=== PATIENT | female | born 1935 | race Caucasian/White ===

== ENCOUNTER 2016-11-22 16:16 | Inpatient (IN) | payer OTHER, MEDICARE ==
[~2016-11-22] VITALS: Ht 147.3 cm; Wt 53.6 kg
[~2016-11-22 16:16] MED LIST: CIPRO500 MG PO; CIPROFLOXACIN500 M1 PO; CITALOPRAM HBR20 MG PO; LEVOTHYROXINE75 MCG PO; LOSARTAN POTAS100 MG PO; LUMIGAN 0.50 DROP/22 BOTH EYES; NORVASC5 MG PO; PROMETHAZINE HC25 M1 PO; TIMOLOL MALEATE15 M1 BOTH EYES
[2016-11-22 17:06] LABS: EOSINOPHIL COUNT 0.1 K/uL (0-0.3); HEMATOCRIT 35.4 % (36.0-46.0); IMMATURE GRANULOCYTE (%) 1.3 % (0.0-0.7); IMMATURE GRANULOCYTE COUNT 0.2 K/uL; INSTRUMENT ABS NEUTROPHIL CT 8.1 K/uL; LYMPHOCYTE COUNT 2.3 K/uL (1.0-2.8); MCH 29.7 PG (29.0-34.0); MCHC 34.7 G/DL (30.0-36.0); MCV 85.5 FL (83-99); MEAN PLAT.VOLUME 8.9 uM^3 (9.5-12.4); MONOCYTE (%) 5.8 % (3-12); MONOCYTE COUNT 0.7 K/uL (0-0.8); NEUTROPHIL (%) 71.2 % (45-76); NEUTROPHIL COUNT 8.1 K/uL (1.8-6.4); PLATELET COUNT 237 K/uL (156-360); RBC DIS.WIDTH-SD 37.8 % (39-53); RED BLOOD COUNT 4.14 M/uL (3.80-5.20); WHITE BLOOD COUNT 11.3 K/uL (4.1-10.2)
[2016-11-22 17:16] LABS: CHLORIDE 87 mEq/L (99-109); POTASSIUM 5.5 mEq/L (3.7-5.4)
[2016-11-22 17:17] LABS: GLUCOSE 173 mg/dL (70-99)
[2016-11-22 17:19] LABS: ANION GAP 11 MEQ/L (2-14)
[2016-11-22 17:21] LABS: GFR ESTIMATE (CALCULATED) > 59 mL/min/
[2016-11-22 17:22] LABS: UREA NITROGEN (BUN) 11 mg/dL (9-23)
[2016-11-22 17:35] LABS: SODIUM 118 mEq/L (136-147)
[2016-11-22 17:49] LABS: COLOR ORANGE ((YELLOW))
[2016-11-22 17:54] LABS: GLUCOSE (STRIP) 100
[2016-11-22 17:55] LABS: ADD MIUA? YES; BLOOD NEGATIVE
[2016-11-22 18:26] LABS: MAGNESIUM 1.7 mg/dL (1.3-2.7)
[2016-11-22] MEDS ORDERED: TIMOPTIC-0100 DROP/1 BOTH EYES (18:31)
[2016-11-22] MEDS ORDERED: NORVASC10 MG PO (18:31)
[2016-11-22] MEDS ORDERED: BAYER ADVANCED500 MG PO (18:33)
[2016-11-22] MEDS ORDERED: TYLENOL REGULA325 MG PO (18:33)
[2016-11-22] MEDS ORDERED: URISTAT95 MG PO (18:33)
[2016-11-22] MEDS ORDERED: ATORVASTATIN CA20 MG PO (18:33)
[2016-11-22 19:12] LABS: EPITHELIAL CELLS RARE /HPF; RED BLOOD CELLS NONE SEEN /HPF (0-5); WHITE BLOOD CELLS NONE SEEN /HPF (0-5)
[2016-11-22 19:13] LABS: BACTERIA NONE SEEN /HPF; MUCUS NONE SEEN /LPF
[2016-11-22 19:59] LABS: POINT-OF-CARE METER ID UU14100415
[2016-11-22 20:55] LABS: TROP-I INTERPRETATION NEGATIVE; TROPONIN-I < 0.01 ng/mL (0.0-0.30)
[2016-11-22 21:33] VITALS: BP 91/66
[2016-11-22 21:44] VITALS: BP 91/66
[2016-11-22 22:00] VITALS: BP 115/60
[2016-11-22 23:00] VITALS: BP 118/65
[2016-11-22 23:00] LABS: METH RESISTANT S AUREUS PCR NEGATIVE (NEGATIVE)
[2016-11-22 23:01] LABS: PROBE CHECK PASS; SPECIMEN PROCESSING CONTROL PASS
[2016-11-22 23:43] LABS: CHLORIDE 93 mEq/L (99-109); SODIUM 120 mEq/L (136-147)
[2016-11-22 23:45] LABS: GLUCOSE 119 mg/dL (70-99); POTASSIUM 4.2 mEq/L (3.7-5.4)
[2016-11-22 23:46] LABS: ANION GAP 10 MEQ/L (2-14)
[2016-11-22 23:48] LABS: GFR ESTIMATE (CALCULATED) > 59 mL/min/
[2016-11-22 23:49] LABS: UREA NITROGEN (BUN) 10 mg/dL (9-23)
[2016-11-23] VITALS (24 sets, daily range): BP systolic 76–153; BP diastolic 39–73
[2016-11-23 06:07] LABS: HEMATOCRIT 29.5 % (36.0-46.0); MCH 29.8 PG (29.0-34.0); MCHC 34.9 G/DL (30.0-36.0); MCV 85.3 FL (83-99); MEAN PLAT.VOLUME 9.3 uM^3 (9.5-12.4); PLATELET COUNT 189 K/uL (156-360); RBC DIS.WIDTH-CV 12.2 % (11.8-14.6); RBC DIS.WIDTH-SD 37.3 % (39-53); RED BLOOD COUNT 3.46 M/uL (3.80-5.20); WHITE BLOOD COUNT 7.9 K/uL (4.1-10.2)
[2016-11-23 06:25] LABS: ANION GAP 7 MEQ/L (2-14); CHLORIDE 96 MEQ/L (99-109); GFR ESTIMATE (CALCULATED) > 59 mL/min/; POTASSIUM 3.8 MEQ/L (3.7-5.4); SAMPLE HEMOLYSIS CHECK 0; SAMPLE ICTERIC CHECK 0; SAMPLE LIPEMIA CHECK 0; SODIUM 123 MEQ/L (136-147); UREA NITROGEN (BUN) 9 mg/dL (9-23)
[2016-11-23 06:28] LABS: GLUCOSE 199 mg/dL (70-99)
[2016-11-23 10:18] LABS: TROP-I INTERPRETATION NEGATIVE; TROPONIN-I 0.16 ng/mL (0.0-0.30)
[2016-11-23 10:25] LABS: ANION GAP 6 MEQ/L (2-14); CHLORIDE 99 MEQ/L (99-109); GFR ESTIMATE (CALCULATED) > 59 mL/min/; GLUCOSE 217 mg/dL (70-99); POTASSIUM 3.7 MEQ/L (3.7-5.4); SAMPLE HEMOLYSIS CHECK 0; SAMPLE ICTERIC CHECK 0; SAMPLE LIPEMIA CHECK 0; SODIUM 124 MEQ/L (136-147); UREA NITROGEN (BUN) 7 mg/dL (9-23)
[2016-11-24] VITALS (23 sets, daily range): BP systolic 114–156; BP diastolic 57–127
[2016-11-24 07:05] LABS: PROTHROMBIN TIME 10.2 (9.2-11.2)
[2016-11-24 13:21] LABS: ADD MIUA? YES; BILIRUBIN NEGATIVE; BLOOD SMALL; COLOR STRAW ((YELLOW)); GLUCOSE (STRIP) NEGATIVE; KETONES NEGATIVE; LEUKOCYTES NEGATIVE; NITRITE NEGATIVE; PROTEIN (STRIP) 100; SPECIFIC GRAVITY 1.005 (1.000-1.030); UROBILINOGEN 0.2 MG/DL (0.2-1.0)
[2016-11-24 13:26] LABS: BACTERIA RARE /HPF; EPITHELIAL CELLS NONE SEEN /HPF; MUCUS NONE SEEN /LPF; RED BLOOD CELLS 0-5 /HPF (0-5); UCUL ADDED? NO; WHITE BLOOD CELLS 0-5 /HPF (0-5)
[2016-11-24 14:37] LABS: UR CREATININE CONCENTRATION 11.8 MG/DL
[2016-11-25] VITALS (19 sets, daily range): BP systolic 0–161; BP diastolic 0–74
[2016-11-25 08:45] LABS: EOSINOPHIL COUNT 0.1 K/uL (0-0.3); HEMATOCRIT 33.2 % (36.0-46.0); IMMATURE GRANULOCYTE (%) 0.5 % (0.0-0.7); INSTRUMENT ABS NEUTROPHIL CT 5.8 K/uL; LYMPHOCYTE COUNT 1.2 K/uL (1.0-2.8); MCH 29.9 PG (29.0-34.0); MCHC 35.5 G/DL (30.0-36.0); MCV 84.3 FL (83-99); MEAN PLAT.VOLUME 8.9 uM^3 (9.5-12.4); MONOCYTE (%) 7.3 % (3-12); MONOCYTE COUNT 0.6 K/uL (0-0.8); NEUTROPHIL (%) 75.6 % (45-76); NEUTROPHIL COUNT 5.8 K/uL (1.8-6.4); PLATELET COUNT 150 K/uL (156-360); RBC DIS.WIDTH-CV 12.2 % (11.8-14.6); RED BLOOD COUNT 3.94 M/uL (3.80-5.20); WHITE BLOOD COUNT 7.7 K/uL (4.1-10.2)
[2016-11-25 09:53] LABS: ANION GAP 9 MEQ/L (2-14); CHLORIDE 99 MEQ/L (99-109); GFR ESTIMATE (CALCULATED) > 59 mL/min/; MAGNESIUM 1.4 mg/dl (1.3-2.7); POTASSIUM 3.2 MEQ/L (3.7-5.4); SAMPLE HEMOLYSIS CHECK 0; SAMPLE ICTERIC CHECK 0; SAMPLE LIPEMIA CHECK 0; UREA NITROGEN (BUN) 4 mg/dL (9-23)
[2016-11-25 10:06] LABS: GLUCOSE 115 mg/dL (70-99); SODIUM 133 MEQ/L (136-147)
[2016-11-26] VITALS (17 sets, daily range): BP systolic 100–152; BP diastolic 47–79
[2016-11-26 08:35] LABS: EOSINOPHIL (%) 3.6 % (0-5); EOSINOPHIL COUNT 0.3 K/uL (0-0.3); HEMATOCRIT 32.2 % (36.0-46.0); IMMATURE GRANULOCYTE (%) 0.3 % (0.0-0.7); INSTRUMENT ABS NEUTROPHIL CT 4.8 K/uL; LYMPHOCYTE COUNT 1.5 K/uL (1.0-2.8); MCH 30.6 PG (29.0-34.0); MCHC 35.4 G/DL (30.0-36.0); MCV 86.6 FL (83-99); MEAN PLAT.VOLUME 9.2 uM^3 (9.5-12.4); MONOCYTE (%) 7.4 % (3-12); MONOCYTE COUNT 0.5 K/uL (0-0.8); NEUTROPHIL (%) 67.5 % (45-76); NEUTROPHIL COUNT 4.8 K/uL (1.8-6.4); PLATELET COUNT 150 K/uL (156-360); RBC DIS.WIDTH-CV 12.5 % (11.8-14.6); RBC DIS.WIDTH-SD 39.4 % (39-53); RED BLOOD COUNT 3.72 M/uL (3.80-5.20); WHITE BLOOD COUNT 7.1 K/uL (4.1-10.2)
[2016-11-26 09:00] LABS: ANION GAP 8 MEQ/L (2-14); CHLORIDE 101 MEQ/L (99-109); GFR ESTIMATE (CALCULATED) > 59 mL/min/; GLUCOSE 151 mg/dL (70-99); POTASSIUM 3.3 MEQ/L (3.7-5.4); SAMPLE HEMOLYSIS CHECK 0; SAMPLE ICTERIC CHECK 0; SAMPLE LIPEMIA CHECK 0; SODIUM 131 MEQ/L (136-147); UREA NITROGEN (BUN) 6 mg/dL (9-23)
[2016-11-26 09:11] LABS: MAGNESIUM 1.8 mg/dl (1.3-2.7)
[2016-11-26 15:54] LABS: ADD MIUA? YES; BILIRUBIN NEGATIVE; BLOOD SMALL; COLOR YELLOW ((YELLOW)); GLUCOSE (STRIP) NEGATIVE; KETONES NEGATIVE; LEUKOCYTES NEGATIVE; NITRITE NEGATIVE; PROTEIN (STRIP) 100; SPECIFIC GRAVITY 1.014 (1.000-1.030); UROBILINOGEN 0.2 MG/DL (0.2-1.0)
[2016-11-26 16:09] LABS: BACTERIA NONE SEEN /HPF; EPITHELIAL CELLS RARE /HPF; HYALINE CASTS 0-5 /LPF; MUCUS TRACE /LPF; RED BLOOD CELLS 20-30 /HPF (0-5); UCUL ADDED? NO; WHITE BLOOD CELLS 0-5 /HPF (0-5)
[2016-11-27] VITALS (16 sets, daily range): BP systolic 112–149; BP diastolic 54–75
[2016-11-27] MEDS ORDERED: LO-DOSE ASPIRIN81 M2 PO (16:07)
== END 2016-11-27 17:15 | disposition home or self-care (01) | DRG 243 ==
LOC: EME 16:16 → CATH 20:12 → 4WEST 21:19 → 2SOUTH 21:19 → 4WEST 21:30
PROVIDERS: Emergency Medicine; Internal Medicine Cardiovascular Disease; Internal Medicine Critical Care Medicine; Internal Medicine Nephrology; Physician Assistant
DX: I49.5 Sick sinus syndrome (principal); E87.2 Acidosis; E87.5 Hyperkalemia; I27.2 Other secondary pulmonary hypertension; E87.0 Hyperosmolality and hypernatremia; E87.8 Other disorders of electrolyte and fluid balance, not elsewhere classified; N39.0 Urinary tract infection, site not specified; E78.5 Hyperlipidemia, unspecified; J45.909 Unspecified asthma, uncomplicated; I35.0 Nonrheumatic aortic (valve) stenosis; N18.9 Chronic kidney disease, unspecified; I13.10 Hypertensive heart and chronic kidney disease without heart failure, with stage 1 through stage 4 chronic kidney disease, or unspecified chronic kidney disease; N05.9 Unspecified nephritic syndrome with unspecified morphologic changes; I95.1 Orthostatic hypotension; E87.1 Hypo-osmolality and hyponatremia; I44.0 Atrioventricular block, first degree; I44.4 Left anterior fascicular block; I47.1 Supraventricular tachycardia; Z88.0 Allergy status to penicillin; E03.9 Hypothyroidism, unspecified; Z66 Do not resuscitate; M81.0 Age-related osteoporosis without current pathological fracture; H40.9 Unspecified glaucoma; E83.42 Hypomagnesemia; E87.6 Hypokalemia; E83.39 Other disorders of phosphorus metabolism; M54.9 Dorsalgia, unspecified; D64.9 Anemia, unspecified; Z87.440 Personal history of urinary (tract) infections
CPT/HCPCS: 71010; 80048; 80048 91; 81003; 82570; 82948; 83605; 83735; 83930; 83935; 84100; 84156; 84300; 84443; 84484; 84550; 85025; 85027; 85610; 87086; 87641; 93005; 94640; 99281; 99285; C1785; C1892; C1894; C1898; J0461; J0610; J0690; J0696; J1644; J1650; J1940; J2250; J3010; J3475; J7030; J7040; J7042; J7050; S0020

== ENCOUNTER 2016-12-02 10:31 | Emergency (ER) | payer OTHER, MEDICARE ==
[~2016-12-02] VITALS: Ht 149.9 cm; Wt 51.8 kg
[~2016-12-02 10:31] MED LIST changes: +ATORVASTATIN CA20 MG PO; +BAYER ADVANCED500 MG PO; +LO-DOSE ASPIRIN81 M2 PO; +NORVASC10 MG PO; +TIMOPTIC-0100 DROP/1 BOTH EYES; +TYLENOL REGULA325 MG PO; +URISTAT95 MG PO
[2016-12-02 12:28] LABS: EOSINOPHIL (%) 2.2 % (0-5); EOSINOPHIL COUNT 0.1 K/uL (0-0.3); HEMATOCRIT 37.6 % (36.0-46.0); IMMATURE GRANULOCYTE (%) 0.8 % (0.0-0.7); INSTRUMENT ABS NEUTROPHIL CT 2.4 K/uL; LYMPHOCYTE COUNT 0.8 K/uL (1.0-2.8); MCV 88.1 FL (83-99); MEAN PLAT.VOLUME 9.1 uM^3 (9.5-12.4); MONOCYTE (%) 7.2 % (3-12); MONOCYTE COUNT 0.3 K/uL (0-0.8); NEUTROPHIL (%) 67.3 % (45-76); NEUTROPHIL COUNT 2.4 K/uL (1.8-6.4); RBC DIS.WIDTH-SD 41.7 % (39-53); RED BLOOD COUNT 4.27 M/uL (3.80-5.20); WHITE BLOOD COUNT 3.6 K/uL (4.1-10.2)
[2016-12-02 12:29] LABS: PLATELET COUNT 238 K/uL (156-360)
[2016-12-02 12:30] LABS: PROTHROMBIN TIME 9.9 (9.2-11.2)
[2016-12-02 12:31] LABS: CHLORIDE 99 mEq/L (99-109); SODIUM 133 mEq/L (136-147)
[2016-12-02 12:33] LABS: GLUCOSE 132 mg/dL (70-99); POTASSIUM 4.3 mEq/L (3.7-5.4)
[2016-12-02 12:34] LABS: ANION GAP 9 MEQ/L (2-14)
[2016-12-02 12:37] LABS: GFR ESTIMATE (CALCULATED) > 59 mL/min/; UREA NITROGEN (BUN) 12 mg/dL (9-23)
[2016-12-02 13:42] VITALS: BP 148/74
== END 2016-12-02 13:43 | disposition home or self-care (01) ==
LOC: EME 10:31
PROVIDERS: Emergency Medicine
DX: L76.32 Postprocedural hematoma of skin and subcutaneous tissue following other procedure (principal); Z95.0 Presence of cardiac pacemaker; Z98.890 Other specified postprocedural states; I10 Essential (primary) hypertension; E78.5 Hyperlipidemia, unspecified
CPT/HCPCS: 80048; 85025; 85610; 99281; 99283

== ENCOUNTER 2017-01-04 05:22 | Inpatient (IN) | payer OTHER, MEDICARE ==
[~2017-01-04] VITALS: Ht 147.3 cm; Wt 62.4 kg
[~2017-01-04 05:22] MED LIST changes: -NORVASC10 MG PO
[2017-01-04 08:25] LABS: ADD MIUA? YES; BILIRUBIN NEGATIVE; BLOOD NEGATIVE; COLOR AMBER ((YELLOW)); GLUCOSE (STRIP) NEGATIVE; KETONES NEGATIVE; LEUKOCYTES NEGATIVE; NITRITE POSITIVE; PROTEIN (STRIP) 100; SPECIFIC GRAVITY 1.004 (1.000-1.030)
[2017-01-04 08:29] LABS: BACTERIA NONE SEEN /HPF; EPITHELIAL CELLS NONE SEEN /HPF; MUCUS TRACE /LPF; RED BLOOD CELLS 0-5 /HPF (0-5); UCUL ADDED? NO; WHITE BLOOD CELLS 0-5 /HPF (0-5)
[2017-01-04 08:41] LABS: HEMATOCRIT 28.5 % (36.0-46.0); MCHC 36.5 G/DL (30.0-36.0); RBC DIS.WIDTH-CV 11.8 % (11.8-14.6); RBC DIS.WIDTH-SD 35.7 % (39-53); RED BLOOD COUNT 3.47 M/uL (3.80-5.20); WHITE BLOOD COUNT 4.5 K/uL (4.1-10.2)
[2017-01-04 08:42] LABS: MCV 82.1 FL (83-99); PLATELET COUNT 178 K/uL (156-360)
[2017-01-04 08:54] LABS: CHLORIDE 93 mEq/L (99-109); POTASSIUM 4.3 mEq/L (3.7-5.4); SODIUM 120 mEq/L (136-147)
[2017-01-04 08:56] LABS: GLUCOSE 119 mg/dL (70-99)
[2017-01-04 08:57] LABS: ANION GAP 8 MEQ/L (2-14)
[2017-01-04 08:58] LABS: TOTAL BILIRUBIN 0.4 mg/dL (0.0-1.0)
[2017-01-04 09:00] LABS: ALKALINE PHOSPHATASE 86 IU/L (3-129); GFR ESTIMATE (CALCULATED) > 59 mL/min/; TROP-I INTERPRETATION NEGATIVE; TROPONIN-I 0.01 ng/mL (0.0-0.30)
[2017-01-04 09:01] LABS: UREA NITROGEN (BUN) 5 mg/dL (9-23)
[2017-01-04] MEDS ORDERED: KEFLEX500 MG PO (11:53)
[2017-01-04] MEDS ORDERED: LOW DOSE ASPIRI81 M1 PO (11:55)
[2017-01-04 13:00] VITALS: BP 10/6
[2017-01-04 15:08] VITALS: BP 132/60
[2017-01-04 20:37] VITALS: BP 134/64
[2017-01-05] VITALS (7 sets, daily range): BP systolic 120–180; BP diastolic 61–77
[2017-01-05 06:03] LABS: HEMATOCRIT 28.8 % (36.0-46.0); MCH 29.3 PG (29.0-34.0); MCHC 34.7 G/DL (30.0-36.0); MCV 84.5 FL (83-99); MEAN PLAT.VOLUME 8.9 uM^3 (9.5-12.4); PLATELET COUNT 211 K/uL (156-360); RBC DIS.WIDTH-CV 12.6 % (11.8-14.6); RBC DIS.WIDTH-SD 38.7 % (39-53); RED BLOOD COUNT 3.41 M/uL (3.80-5.20); WHITE BLOOD COUNT 3.9 K/uL (4.1-10.2)
[2017-01-05 06:26] LABS: ANION GAP 7 MEQ/L (2-14); CHLORIDE 96 MEQ/L (99-109); GFR ESTIMATE (CALCULATED) > 59 mL/min/; GLUCOSE 101 mg/dL (70-99); POTASSIUM 4.3 MEQ/L (3.7-5.4); SAMPLE HEMOLYSIS CHECK 0; SAMPLE ICTERIC CHECK 0; SAMPLE LIPEMIA CHECK 0; UREA NITROGEN (BUN) 8 mg/dL (9-23)
[2017-01-05 06:27] LABS: SODIUM 128 MEQ/L (136-147)
[2017-01-06 03:42] VITALS: BP 163/74
[2017-01-06 07:23] LABS: ANION GAP 10 MEQ/L (2-14); CHLORIDE 94 MEQ/L (99-109); GFR ESTIMATE (CALCULATED) > 59 mL/min/; GLUCOSE 105 mg/dL (70-99); POTASSIUM 4.2 MEQ/L (3.7-5.4); SAMPLE HEMOLYSIS CHECK 0; SAMPLE ICTERIC CHECK 0; SAMPLE LIPEMIA CHECK 0; SODIUM 128 MEQ/L (136-147); UREA NITROGEN (BUN) 10 mg/dL (9-23)
[2017-01-06 07:26] VITALS: BP 163/72
[2017-01-06 11:35] VITALS: BP 111/55
== END 2017-01-06 14:45 | disposition home health service (06) | DRG 644 ==
LOC: EME 05:22 → ENRESERV 10:32 → EDOF 10:36 → 5SOUTH 10:36 → ENRESERV 10:54 → 5SOUTH 12:39
PROVIDERS: Internal Medicine; Nurse Practitioner Family
DX: E22.2 Syndrome of inappropriate secretion of antidiuretic hormone (principal); N39.0 Urinary tract infection, site not specified; K52.9 Noninfective gastroenteritis and colitis, unspecified; I35.0 Nonrheumatic aortic (valve) stenosis; I49.5 Sick sinus syndrome; N18.9 Chronic kidney disease, unspecified; I12.9 Hypertensive chronic kidney disease with stage 1 through stage 4 chronic kidney disease, or unspecified chronic kidney disease; K57.90 Diverticulosis of intestine, part unspecified, without perforation or abscess without bleeding; E78.5 Hyperlipidemia, unspecified; Z90.49 Acquired absence of other specified parts of digestive tract; Z95.0 Presence of cardiac pacemaker; Z68.28 Body mass index [BMI] 28.0-28.9, adult; Z79.899 Other long term (current) drug therapy; Z79.82 Long term (current) use of aspirin; M81.0 Age-related osteoporosis without current pathological fracture; H40.9 Unspecified glaucoma; N32.89 Other specified disorders of bladder; J45.909 Unspecified asthma, uncomplicated
CPT/HCPCS: 71010; 74177; 80048; 80053; 81003; 83605; 84484; 85027; 86900; 86901; 87086; 93005; 99281; 99285; J0696; J1650; J2405; J7030; J7050

== ENCOUNTER → 2017-03-05 | Outpatient (CLI) | payer OTHER, MEDICARE ==
[~2017-03-05] VITALS: Ht 149.9 cm; Wt 45.8 kg
[~2017-03-05] MED LIST changes: +CELEXA20 MG PO; +KEFLEX500 MG PO; +LIPITOR20 MG PO; +LOW DOSE ASPIRI81 M1 PO
== END | disposition home or self-care (01) ==
LOC: AMB 11:01
DX: K57.30 Diverticulosis of large intestine without perforation or abscess without bleeding (principal); K56.51 Intestinal adhesions [bands], with partial obstruction; Z53.09 Procedure and treatment not carried out because of other contraindication; K29.70 Gastritis, unspecified, without bleeding; K59.00 Constipation, unspecified; F50.89 Other specified eating disorder; R63.4 Abnormal weight loss; F41.9 Anxiety disorder, unspecified; I35.0 Nonrheumatic aortic (valve) stenosis; J45.909 Unspecified asthma, uncomplicated; I10 Essential (primary) hypertension; N03.9 Chronic nephritic syndrome with unspecified morphologic changes; H40.9 Unspecified glaucoma; K86.2 Cyst of pancreas; K21.9 Gastro-esophageal reflux disease without esophagitis; E78.5 Hyperlipidemia, unspecified; E89.0 Postprocedural hypothyroidism; Z88.0 Allergy status to penicillin; Z88.5 Allergy status to narcotic agent; Z88.7 Allergy status to serum and vaccine; Z88.8 Allergy status to other drugs, medicaments and biological substances
CPT/HCPCS: 74177; 82565; 84520; 88305; 88342 TC; J2250; J3010